=== PATIENT | male | born 1985 | race Hispanic/Latino ===

== ENCOUNTER 2017-11-11 12:27 | Emergency (ER) | payer BC ==
[2017-11-11 12:47] VITALS: BP 143/89; PULSE 87; RESP 16; TEMP 98; O2SAT 100
[2017-11-11] MEDS ORDERED: Oxycodone/Acetaminophen 5/325 mg Tab PO STA ×2 (12:54→14:11)
[2017-11-11] MEDS ORDERED: Oxycodone/Acetaminophen 5/325 mg Tab ONE ×2 (12:59→14:16)
--- NOTE | 2017-11-11 13:00 | ED PDOC ---
HPI: Back Time Seen by Provider: 11/11/17 12:45 Chief Complaint (Nursing): Back Pain Chief Complaint (Provider): Back Pain History Per: Patient History/Exam Limitations: no limitations Onset/Duration Of Symptoms: Mins (prior to arrival) Current Symptoms Are (Timing): Still Present Additional Complaint(s): 32 year old male, with a history of back surgery in 2010, presents to the emergency department complaining of severe back pain, onset this morning. The patient reports that yesterday he took Advil for minor back pain, but while reaching for something this morning, the pain was exacerbated and now he feels shooting intermittent pain which radiates down his right leg. Reports no urinary or rectal incontinence. PMD: none provided Past Medical History Reviewed: Historical Data, Nursing Documentation, Vital Signs Vital Signs: Last Vital Signs Temp 98 F 11/11/17 12:44 Pulse 87 11/11/17 12:44 Resp 16 11/11/17 12:44 BP 143/89 11/11/17 12:44 Pulse Ox 100 11/11/17 12:44 - Medical History PMH: Back Problems - Surgical History Surgical History: Back Surgery - Family History Family History: States: Unknown Family Hx - Social History Current smoker - smoking cessation education provided: No Alcohol: Social Drugs: Denies - Home Medications Home Medications: Ambulatory Orders Medication Instructions Recorded Acetaminophen [Acetaminophen Extra 2 tab PO Q6 PRN #24 tablet 11/11/17 Strength] Naproxen 375 mg PO Q8 PRN #21 tablet 11/11/17 diaZEpam [Valium] 5 mg PO Q8 #5 tab 11/11/17 - Allergies Allergies/Adverse Reactions: Allergies Allergy/AdvReac Type Severity Reaction Status Date / Time No Known Allergies Allergy Verified 11/11/17 12:44 Review of Systems ROS Statement: Except As Marked, All Systems Reviewed And Found Negative Genitourinary Male: Negative for: Incontinence (urinary and rectal) Musculoskeletal: Positive for: Back Pain (shooting intermittent, radiating down right leg; worse today with reaching) Physical Exam - Reviewed Nursing Documentation Reviewed: Yes Vital Signs Reviewed: Yes - Physical Exam Appears: Positive for: Non-toxic, No Acute Distress Head Exam: Positive for: ATRAUMATIC, NORMOCEPHALIC Skin: Positive for: Normal Color, Warm, Dry Eye Exam: Positive for: Normal appearance Neck: Positive for: Normal, Painless ROM, Supple Cardiovascular/Chest: Positive for: Regular Rate, Rhythm. Negative for: Murmur Respiratory: Positive for: Normal Breath Sounds. Negative for: Accessory Muscle Use, Respiratory Distress Gastrointestinal/Abdominal: Positive for: Normal Exam, Soft. Negative for: Tenderness Back: Positive for: Other (paralumbar tenderness) Extremity: Positive for: Normal ROM Neurologic/Psych: Positive for: Alert, Oriented - ECG O2 Sat by Pulse Oximetry: 100 (RA) Pulse Ox Interpretation: Normal Medical Decision Making Medical Decision Making: Time: 12:54 Initial Impression: back pain Initial Plan: --Percocet 1 tab PO --Toradol 30mg IM 14:10 Pt was re-evaluated at this time and he notes that while the pain is persistent, he feels some improvement. Another dose of Percocet will be administered. Scribe Attestation: Documented by Mona Barreto, acting as a scribe for Elham Patton PA-C Provider Scribe Attestation: All medical record entries made by the Scribe were at my direction and personally dictated by me. I have reviewed the chart and agree that the record accurately reflects my personal performance of the history, physical exam, medical decision making, and the department course for this patient. I have also personally directed, reviewed, and agree with the discharge instructions and disposition. Disposition - Clinical Impression Clinical Impression: Low back pain - Patient ED Disposition Is Patient to be Admitted: No - Disposition Disposition: Routine/Home Disposition Time: 14:25 Condition: FAIR Prescriptions: Acetaminophen [Acetaminophen Extra Strength] 2 tab PO Q6 PRN #24 tablet PRN Reason: Pain, Severe (8-10) diaZEpam [Valium] 5 mg PO Q8 #5 tab Naproxen 375 mg PO Q8 PRN #21 tablet PRN Reason: Pain, Moderate (4-7) Instructions: Low Back Pain (DC) Forms: [facility] (Korean), [facility] School/Work Excuse
== END 2017-11-11 14:54 | disposition home or self-care (01) ==
LOC: H.ER 12:27
DX: M54.5 Low back pain (principal)
CPT/HCPCS: 96372; 99282; J1885